=== PATIENT | female | born 1955 | race Caucasian/White ===

== ENCOUNTER 2017-02-12 10:28 | Emergency (ER) | payer MEDICAID ==
--- NOTE | 2017-02-12 10:42 | ER Document Report ---
ED Medical Screen (RME) - General Stated Complaint: ABDOMINAL AND BACK PAIN Time seen by provider: 10:39 Mode of Arrival: Wheelchair Information source: Patient Notes: 61-year-old female presents to ED for generalized abdominal pain with back pain states she had nausea just today none today no vomiting yesterday or today from her ribs down worse for the last week and a half. With the worst pain in the left lower ribs. She states the pain from her ribs radiates around to her back. She has had 3 fractures surgeries and 2 hip surgeries in his right hip. She states she also has a large ventral hernia. She has a history of heart problems blood pressure and cholesterol. I have greeted and performed a rapid initial assessment of this patient. A comprehensive ED assessment and evaluation of the patient, analysis of test results and completion of medical decision making process will be conducted by an additional ED providers. TRAVEL OUTSIDE OF THE [place] IN LAST 30 DAYS: No - Related Data Allergies/Adverse Reactions: amlodipine besylate [From Norvasc] Allergy (Verified 08/02/15 15:48) amoxicillin [Amoxicillin] Allergy (Verified 08/02/15 15:48) bupropion HCl [From Wellbutrin] Allergy (Verified 08/02/15 15:48) cefuroxime axetil [From Ceftin] Allergy (Verified 08/02/15 15:48) doxycycline [Doxycycline] Allergy (Verified 08/02/15 15:48) lisinopril [Lisinopril] Allergy (Verified 08/02/15 15:48) oxycodone HCl [From OxyContin] Allergy (Verified 08/02/15 15:48) povidone-iodine [From Betadine] Allergy (Verified 08/02/15 15:48) prochlorperazine maleate [From Compazine] Allergy (Verified 08/02/15 15:48) quetiapine fumarate [From Seroquel] Allergy (Verified 08/02/15 15:48) rosiglitazone maleate [From Avandia] Allergy (Verified 08/02/15 15:48) Past Medical History - Past Medical History Cardiac Medical History: Reports: Hx Heart Attack, Hx Hypercholesterolemia, Hx Hypertension Pulmonary Medical History: Reports: Hx Asthma, Hx Bronchitis, Hx COPD, Hx Pneumonia Denies: Hx Tuberculosis Endocrine Medical History: Reports: Hx Diabetes Mellitus Type 2 GI Medical History: Reports: Hx Gastroesophageal Reflux Disease Musculoskeltal Medical History: Reports Hx Arthritis, Reports Hx Fibromyalgia Psychiatric Medical History: Reports: Hx Bipolar Disorder, Hx Depression Past Surgical History: Reports: Hx Hysterectomy, Hx Orthopedic Surgery, Hx Thyroid Surgery. Denies: Hx Pacemaker - Immunizations Immunizations up to date: Yes Hx Diphtheria, Pertussis, Tetanus Vaccination: No Physical Exam - Vital signs Vitals: Temp Pulse Resp BP Pulse Ox 97.9 F 86 18 111/66 98 02/12/17 10:37 02/12/17 10:37 02/12/17 10:37 02/12/17 10:37 02/12/17 10:37 Course - Vital Signs Vital signs: Temp Pulse Resp BP Pulse Ox 97.9 F 86 18 111/66 98 02/12/17 10:37 02/12/17 10:37 02/12/17 10:37 02/12/17 10:37 02/12/17 10:37
[2017-02-12 11:19] LABS: APPEARANCE,URINE CLEAR; BILIRUBIN,URINE NEGATIVE (NEGATIVE); GLUCOSE, URINE NEGATIVE (NEGATIVE); KETONES,URINE NEGATIVE (NEGATIVE); LEUKOCYTE ESTERASE,URINE NEGATIVE (NEGATIVE); NITRITE,URINE NEGATIVE (NEGATIVE); PROTEIN,URINE NEGATIVE (NEGATIVE); URINE SPECIFIC GRAVITY 1.003; UROBILINOGEN,URINE NEGATIVE mg/dL (<2.0)
[2017-02-12 11:20] LABS: ABSOLUTE EOSINOPHILS # (AUTO) 0.3 10^3/uL (0.0-0.6); ABSOLUTE LYMPHOCYTES (AUTO) 1.7 10^3/uL (0.5-4.7); ABSOLUTE MONOCYTES (AUTO) 0.7 10^3/uL (0.1-1.4); ABSOLUTE NEUT (AUTO) 8.9 10^3/uL (1.7-8.2); BASOPHILS % (AUTO) 0.4 % (0-2); EOSINOPHILS % (AUTO) 2.4 % (0-6); HEMATOCRIT 34.7 % (36.0-47.0); HGB HCT DIFFERENCE -1.7; LYMPHOCYTES % (AUTO) 14.8 % (13-45); MEAN CORPUSCULAR HEMOGLOBIN 24.6 pg (27.0-33.4); MEAN CORPUSCULAR HGB CONC 31.8 g/dL (32.0-36.0); MEAN CORPUSCULAR VOLUME 77 fl (80-97); MONOCYTES % (AUTO) 5.6 % (3-13); RED CELL DISTRIBUTION WIDTH 18.1 % (11.5-14.0); SEGMENTED NEUTROPHILS % (AUTO) 76.8 % (42-78); WHITE BLOOD COUNT 11.6 10^3/uL (4.0-10.5)
[2017-02-12 11:35] LABS: ALANINE AMINOTRANSFERASE 40 U/L (9-52); ALBUMIN 4.6 g/dL (3.5-5.0); ALKALINE PHOSPHATASE 121 U/L (38-126); ANION GAP 13 (5-19); ASPARTATE AMINO TRANSFERASE 26 U/L (14-36); BILIRUBIN,TOTAL 0.3 mg/dL (0.2-1.3); BLOOD UREA NITROGEN 16 mg/dL (7-20); CALCIUM 10.2 mg/dL (8.4-10.2); CARBON DIOXIDE 29 mmol/L (22-30); CHLORIDE 102 mmol/L (98-107); CREATININE RESULT 0.91 mg/dL (0.52-1.25); GLUCOSE 129 mg/dL (75-110); LIPASE 128.6 U/L (23-300); POTASSIUM 5.1 mmol/L (3.6-5.0); TOTAL PROTEIN 7.7 g/dL (6.3-8.2)
--- NOTE | 2017-02-12 11:51 | ER Document Report ---
ED General - General Time seen by provider: 11:50 Mode of Arrival: Wheelchair Information source: Patient TRAVEL OUTSIDE OF THE [place] IN LAST 30 DAYS: No - HPI Onset: Other - see HPI note <TRENT HOWE - Last Filed: 02/12/17 16:45> <LANDON DANIELS - Last Filed: 02/27/17 05:51> - General Chief Complaint: Upper Abdominal Pain Stated Complaint: ABDOMINAL AND BACK PAIN Notes: Patient presents to the emergency department for rib pain and constipation. Patient has had this pain for the past 1.5 weeks. Patient states that after she eats she feels lots of pressure and pain to the area. Patient is on chronic pain management and states she takes miralax every night for her constipation due to her chronic pain medications. Patient also has a large ventral hernia. Patient states she has seen a surgeon regarding her hernia in [place], her home; patient states the surgeon told her she would need surgery and she should "lose some weight first." Patient did not want to have a major surgery so she stated that she backed out. Patient states she was not aware of the risks involved with this surgery. Patient states she has been having some spasms from her hernia. Patient has a history of back surgery x3, hip replacements x2, hypertension, and hypercholesterolemia. (TRENT HOWE) - Related Data Allergies/Adverse Reactions: amlodipine besylate [From Norvasc] Allergy (Verified 02/12/17 10:39) amoxicillin [Amoxicillin] Allergy (Verified 02/12/17 10:39) bupropion HCl [From Wellbutrin] Allergy (Verified 02/12/17 10:39) cefuroxime axetil [From Ceftin] Allergy (Verified 02/12/17 10:39) doxycycline [Doxycycline] Allergy (Verified 02/12/17 10:39) lisinopril [Lisinopril] Allergy (Verified 02/12/17 10:39) oxycodone HCl [From OxyContin] Allergy (Verified 02/12/17 10:39) povidone-iodine [From Betadine] Allergy (Verified 02/12/17 10:39) prochlorperazine maleate [From Compazine] Allergy (Verified 02/12/17 10:39) quetiapine fumarate [From Seroquel] Allergy (Verified 02/12/17 10:39) rosiglitazone maleate [From Avandia] Allergy (Verified 08/02/15 15:48) Past Medical History - General Information source: Patient - Social History Smoking Status: Former Smoker Chew tobacco use (# tins/day): No Frequency of alcohol use: None Drug Abuse: None Family History: None Patient has suicidal ideation: No Patient has homicidal ideation: No - Past Medical History Cardiac Medical History: Reports: Hx Heart Attack, Hx Hypercholesterolemia, Hx Hypertension Pulmonary Medical History: Reports: Hx Asthma, Hx Bronchitis, Hx COPD, Hx Pneumonia Endocrine Medical History: Reports: Hx Diabetes Mellitus Type 2 GI Medical History: Reports: Hx Gastroesophageal Reflux Disease, Other - ventral hernia Musculoskeltal Medical History: Reports Hx Arthritis, Reports Hx Fibromyalgia Psychiatric Medical History: Reports: Hx Bipolar Disorder, Hx Depression Past Surgical History: Reports: Hx Hysterectomy, Hx Orthopedic Surgery - back Sx x3; hip Sx x2, Hx Thyroid Surgery - Immunizations Immunizations up to date: Yes Hx Diphtheria, Pertussis, Tetanus Vaccination: No Hx Pneumococcal Vaccination: 11/30/08 <TRENT HOWE - Last Filed: 02/12/17 16:45> Review of Systems - Review of Systems Constitutional: No symptoms reported EENT: No symptoms reported Cardiovascular: No symptoms reported Respiratory: No symptoms reported Gastrointestinal: See HPI, Abdominal pain Genitourinary: No symptoms reported Female Genitourinary: No symptoms reported Musculoskeletal: No symptoms reported Skin: No symptoms reported Hematologic/Lymphatic: No symptoms reported Neurological/Psychological: No symptoms reported -: Yes All other systems reviewed and negative <TRENT HOWE - Last Filed: 02/12/17 16:45> Physical Exam - Vital signs Interpretation: Normal - General General appearance: Appears well, Alert In distress: Mild - HEENT Head: Normocephalic, Atraumatic Eyes: Normal Pupils: PERRL Mucous membranes: Moist - Respiratory Respiratory status: No respiratory distress Chest status: Nontender Breath sounds: Normal Chest palpation: Normal - Cardiovascular Rhythm: Regular Heart sounds: Normal auscultation Murmur: No - Abdominal Inspection: Other - Large ventral hernia Distension: No distension Bowel sounds: Normal Tenderness: Nontender Organomegaly: No organomegaly - Back Back: Normal, Nontender - Extremities General upper extremity: Normal inspection, Normal ROM, Normal strength General lower extremity: Normal inspection, Normal ROM, Normal strength - Neurological Neuro grossly intact: Yes Cognition: Normal Orientation: AAOx4 [place] Coma Scale Eye Opening: Spontaneous [place] Coma Scale Verbal: Oriented Jake Coma Scale Motor: Obeys Commands Jake Coma Scale Total: 15 Speech: Normal - Psychological Associated symptoms: Normal affect, Normal mood - Skin Skin Temperature: Warm Skin Moisture: Dry <TRENT HOWE - Last Filed: 02/12/17 16:45> Course - Laboratory Result Diagrams: 02/12/17 10:43 02/12/17 10:43 <TRENT HOWE - Last Filed: 02/12/17 16:45> - Laboratory Result Diagrams: 02/12/17 10:43 02/12/17 10:43 <LANDON DANIELS - Last Filed: 02/27/17 05:51> - Vital Signs Vital signs: Temp Pulse Resp BP Pulse Ox 97.8 F 85 20 136/78 H 96 02/12/17 14:43 02/12/17 14:43 02/12/17 14:43 02/12/17 14:43 02/12/17 14:43 - Laboratory Laboratory results interpreted by me: 02/12/17 02/12/17 10:43 10:43 WBC 11.6 H Hgb 11.0 L Hct 34.7 L MCV 77 L MCH 24.6 L MCHC 31.8 L RDW 18.1 H Absolute Neutrophils 8.9 H Potassium 5.1 H Glucose 129 H Discharge <TRENT HOWE - Last Filed: 02/12/17 16:45> <LANDON DANIELS - Last Filed: 02/27/17 05:51> - Discharge Clinical Impression: Abdominal pain, .large nonincarcerated ventral hernia Condition: Stable Disposition: HOME, SELF-CARE Additional Instructions: Abdominal Pain There are many causes of abdominal pain. Pain can mean a serious problem requiring surgery (such as appendicitis). It can also be an innocent problem that goes away on its own (such as a viral infection). Often, time must pass to determine the cause of pain. The physician does not feel that hospitalization is necessary, at present. Things may change within the next 24 hours. Call the doctor or come back for re- examination if any problems occur, such as: (1) Pain that becomes more severe, steady, or becomes concentrated in one specific area. Also, pain that is more severe with movement or coughing. (2) Vomiting that persists or becomes more frequent. (3) Blood in the vomitus, urine, or bowel movements. Blood in the stool may have a tarry or black appearance. (4) Shaking chills or fever greater than 100 degrees F. (5) The abdomen becomes more distended or swollen. (6) Bowel movements cease. (7) Failure to improve as expected. Hernia You have a hernia. A hernia forms at a weak spot in the abdominal wall. Bowel slips out of the abdominal cavity into the weak spot. Hernias tend to occur in the groin (especially in males), the fold of the thigh, the naval, or at a surgical scar. Surgical repair of the defect is usually necessary. The problem tends to get worse. It's important that you follow up as recommended. For now, you should avoid straining, heavy lifting, and vigorous exercise. Complications occur if the hernia becomes tightly stuck. You should come back immediately if the area becomes increasingly painful, swollen, or discolored, or if you develop abdominal pain and vomiting. Referrals: GORAN LUKE MD [ACTIVE STAFF] - Follow up tomorrow (This is concrete batcher for unassigned primary care. Please call his office first thing in the morning told them the ER would like you to be seen in one to 2 days in follow-up for abdominal pain return to the emergency department sooner for increasing worsening or new symptoms) Scribe Documentation - Scribe Written by Edith:: Trent Howe 02/12/17 12:15 acting as scribe for :: Major <TRENT HOWE - Last Filed: 02/12/17 16:45>
[2017-02-12 14:50] VITALS: BP 136/78
== END 2017-02-12 13:00 | disposition home or self-care (01) ==
LOC: ER 10:28
DX: K43.9 Ventral hernia without obstruction or gangrene (principal); R10.84 Generalized abdominal pain; R07.81 Pleurodynia; K59.00 Constipation, unspecified; E78.00 Pure hypercholesterolemia, unspecified; I10 Essential (primary) hypertension; J44.9 Chronic obstructive pulmonary disease, unspecified; E11.9 Type 2 diabetes mellitus without complications; Z96.643 Presence of artificial hip joint, bilateral; Z88.0 Allergy status to penicillin; Z90.710 Acquired absence of both cervix and uterus; I25.2 Old myocardial infarction
CPT/HCPCS: 36415; 74176; 80053; 81001; 83605; 83690; 85025; 99284

== ENCOUNTER → 2018-12-25 | Outpatient (CLI) | payer MEDICAID ==
[2018-12-25 12:17] LABS: APPEARANCE,URINE CLEAR; BILIRUBIN,URINE NEGATIVE (NEGATIVE); COLOR,URINE STRAW; GLUCOSE, URINE NEGATIVE (NEGATIVE); KETONES,URINE NEGATIVE (NEGATIVE); LEUKOCYTE ESTERASE,URINE NEGATIVE (NEGATIVE); NITRITE,URINE NEGATIVE (NEGATIVE); PROTEIN,URINE NEGATIVE (NEGATIVE); URINE SPECIFIC GRAVITY 1.004; UROBILINOGEN,URINE NEGATIVE mg/dL (<2.0)
[2018-12-25 12:22] LABS: ABSOLUTE EOSINOPHILS # (AUTO) 0.4 10^3/uL (0.0-0.6); ABSOLUTE MONOCYTES (AUTO) 0.5 10^3/uL (0.1-1.4); ABSOLUTE NEUT (AUTO) 6.7 10^3/uL (1.7-8.2); BASOPHILS % (AUTO) 0.4 % (0-2); EOSINOPHILS % (AUTO) 3.8 % (0-6); HEMATOCRIT 31.9 % (36.0-47.0); HEMOGLOBIN 10.3 g/dL (12.0-15.5); LYMPHOCYTES % (AUTO) 20.8 % (13-45); MEAN CORPUSCULAR HEMOGLOBIN 25.6 pg (27.0-33.4); MEAN CORPUSCULAR HGB CONC 32.4 g/dL (32.0-36.0); MEAN CORPUSCULAR VOLUME 79 fl (80-97); MONOCYTES % (AUTO) 4.9 % (3-13); PLATELET COUNT 320 10^3/uL (150-450); RED BLOOD COUNT 4.03 10^6/uL (3.72-5.28); RED CELL DISTRIBUTION WIDTH 18.1 % (11.5-14.0); SEGMENTED NEUTROPHILS % (AUTO) 70.1 % (42-78); TOTAL CELLS COUNTED % (AUTO) 100 %; WHITE BLOOD COUNT 9.6 10^3/uL (4.0-10.5)
[2018-12-25 12:35] LABS: ALANINE AMINOTRANSFERASE 36 U/L (9-52); ALBUMIN 4.1 g/dL (3.5-5.0); ALKALINE PHOSPHATASE 109 U/L (38-126); ANION GAP 8 (5-19); ASPARTATE AMINO TRANSFERASE 37 U/L (14-36); BILIRUBIN,DIRECT 0.2 mg/dL (0.0-0.4); BILIRUBIN,TOTAL 0.2 mg/dL (0.2-1.3); BLOOD UREA NITROGEN 13 mg/dL (7-20); CALCIUM 9.1 mg/dL (8.4-10.2); CARBON DIOXIDE 28 mmol/L (22-30); CHLORIDE 105 mmol/L (98-107); GLUCOSE 122 mg/dL (75-110); POTASSIUM 4.1 mmol/L (3.6-5.0); TOTAL PROTEIN 6.7 g/dL (6.3-8.2)
[2018-12-27 03:36] LABS: CREATININE URINE 28.4 mg/dL (Not Estab.)
[2018-12-27 07:20] LABS: MICROALBUMIN URINE <3.0 ug/mL (Not Estab.)
== END ==
LOC: OD 10:41
PROVIDERS: ATTEND Internal Medicine
DX: D64.9 Anemia, unspecified (principal); R10.9 Unspecified abdominal pain; E11.8 Type 2 diabetes mellitus with unspecified complications; E78.5 Hyperlipidemia, unspecified; E55.9 Vitamin D deficiency, unspecified
CPT/HCPCS: 36415; 80053; 81001; 82043; 82306; 82570; 83036; 84443; 85025

== ENCOUNTER 2019-01-05 12:46 | Emergency (ER) | payer MEDICAID ==
--- NOTE | 2019-01-05 14:29 | ER Document Report ---
ED General - General Chief Complaint: Knee Pain Stated Complaint: KNEE PAIN Time Seen by Provider: 01/05/19 14:12 Primary Care Provider: RICKIE MCDANIEL MD [Primary Care Provider] - Follow up in 3-5 days Mode of Arrival: Medic Information source: Patient, Emergency Med Personnel, [facility] Records Notes: 63-year-old female with arthritis, fibromyalgia, type 2 diabetes, hypertension, hyperlipidemia, previous history of back and hip surgery presents via EMS from home with complaint of bilateral knee pain and right shoulder pain. Patient states that she fell asleep in bed and fell out of bed landing onto the carpeted floor onto both knees. Patient denies head injury, loss of consciousness. Patient denies any preceding chest pain, shortness of breath. TRAVEL OUTSIDE OF THE [place] IN LAST 30 DAYS: No - HPI Onset: Just prior to arrival Onset/Duration: Sudden Quality of pain: Achy, Throbbing Severity: Mild Pain Level: 2 Associated symptoms: denies: Chest pain, Chills, Fever, Nausea, Vomiting, Shortness of breath, Weakness Exacerbated by: Movement Relieved by: Denies Similar symptoms previously: Yes Recently seen / treated by doctor: Yes - Related Data Allergies/Adverse Reactions: amlodipine besylate [From Norvasc] Allergy (Verified 01/05/19 12:49) amoxicillin [Amoxicillin] Allergy (Verified 01/05/19 12:49) bupropion HCl [From Wellbutrin] Allergy (Verified 01/05/19 12:49) cefuroxime axetil [From Ceftin] Allergy (Verified 01/05/19 12:49) doxycycline [Doxycycline] Allergy (Verified 01/05/19 12:49) lisinopril [Lisinopril] Allergy (Verified 01/05/19 12:49) oxycodone HCl [From OxyContin] Allergy (Verified 01/05/19 12:49) povidone-iodine [From Betadine] Allergy (Verified 01/05/19 12:49) prochlorperazine maleate [From Compazine] Allergy (Verified 01/05/19 12:49) quetiapine fumarate [From Seroquel] Allergy (Verified 01/05/19 12:49) rosiglitazone maleate [From Avandia] Allergy (Verified 01/05/19 12:49) Past Medical History - General Information source: Patient, Emergency Med Personnel, [facility] Records - Social History Smoking Status: Former Smoker Frequency of alcohol use: None Drug Abuse: None Lives with: Family Family History: None Patient has suicidal ideation: No Patient has homicidal ideation: No - Past Medical History Cardiac Medical History: Reports: Hx Heart Attack, Hx Hypercholesterolemia, Hx Hypertension Pulmonary Medical History: Reports: Hx Asthma, Hx Bronchitis, Hx COPD, Hx Pneumonia Denies: Hx Tuberculosis Endocrine Medical History: Reports: Hx Diabetes Mellitus Type 2 Renal/ Medical History: Denies: Hx Peritoneal Dialysis GI Medical History: Reports: Hx Gastroesophageal Reflux Disease Musculoskeletal Medical History: Reports Hx Arthritis, Reports Hx Fibromyalgia Psychiatric Medical History: Reports: Hx Bipolar Disorder, Hx Depression Past Surgical History: Reports: Hx Hysterectomy, Hx Orthopedic Surgery - back Sx x3; hip Sx x2, Hx Thyroid Surgery. Denies: Hx Pacemaker - Immunizations Immunizations up to date: Yes Hx Diphtheria, Pertussis, Tetanus Vaccination: No Hx Pneumococcal Vaccination: 11/30/08 Review of Systems - Review of Systems Notes: REVIEW OF SYSTEMS: CONSTITUTIONAL : Denies fever, chills, or sweats. Denies recent illness. Denies weight loss, recent hospitalizations. EENT: Denies visual changes, eye pain. Denies sore throat, oral lesions, difficulty swallowing. CARDIOVASCULAR: Denies chest pain. Denies palpitations. Denies lower extremity edema. RESPIRATORY: Denies cough. Denies shortness of breath, wheezing. GASTROINTESTINAL: Denies abdominal pain or distention. Denies nausea, vomiting, or diarrhea. Denies blood in vomitus, stools, or per rectum. Denies black, tarry stools. Denies constipation. GENITOURINARY: Denies difficulty urinating, painful urination, frequency, blood in urine, or vaginal discharge. MUSCULOSKELETAL: + Back painchronic, bilateral knee pain SKIN: Denies rash, lesions or sores. HEMATOLOGIC : Denies easy bruising or bleeding. LYMPHATIC: Denies swollen glands. NEUROLOGICAL: Denies confusion or altered mental status. Denies loss of consciousness. Denies dizziness or lightheadedness. Denies headache. Denies weakness or paralysis. Denies problems slurred speech. Denies sensory loss, numbness, or tingling. Denies seizures. PSYCHIATRIC: Denies anxiety or stress. Denies depression, suicidal ideation, or homicidal ideation. Denies visual or auditory hallucinations. Physical Exam - Vital signs Vitals: Temp Pulse Resp BP Pulse Ox 97.7 F 78 20 120/71 97 01/05/19 13:16 01/05/19 13:16 01/05/19 13:16 01/05/19 13:16 01/05/19 13:16 - Notes Notes: PHYSICAL EXAMINATION: GENERAL: In wheelchair, somnolent but arousable HEAD: Atraumatic, normocephalic. EYES: Pinpoint pupils equal round and reactive to light, extraocular movements intact, conjunctiva are normal. ENT: Nares patent, oropharynx clear without exudates. Moist mucous membranes. NECK: Normal range of motion, supple without lymphadenopathy LUNGS: Breath sounds clear to auscultation bilaterally and equal. No wheezes rales or rhonchi. HEART: Regular rate and rhythm without murmurs ABDOMEN: Soft, nontender, nondistended abdomen. No guarding, no rebound. No masses appreciated. Female : deferred Musculoskeletal: Normal range of motion, no pitting or edema. No cyanosis. Knees-no obvious deformity, extensor mechanism intact bilaterally. Pain with palpation to the medial of the knees bilaterally. No associated ecchymosis. DP, PT pulse intact. 5/5 dorsi and plantar flexion. Patient able to wiggle her toes. Right shoulder full range of motion, no obvious deformity, radial pulse intact. No neuro deficits. NEUROLOGICAL: Cranial nerves grossly intact. Normal speech, normal gait. Normal sensory, motor exams PSYCH: Normal mood, normal affect. SKIN: Warm, Dry, normal turgor, no rashes or lesions noted. Course - Re-evaluation Re-evalutation: Knee X-Ray 01/05/19 14:22 IMPRESSION: No acute fracture Shoulder X-Ray 01/05/19 14:23 IMPRESSION: NEGATIVE STUDY OF THE RIGHT SHOULDER. NO RADIOGRAPHIC EVIDENCE OF ACUTE INJURY. 01/05/19 15:32 63-year-old female presents via EMS with complaint of bilateral knee pain and right shoulder pain after falling out of bed while sleeping. Patient denies head injury, loss of consciousness. She does have an extensive history of arthritis, orthopedic procedures and fibromyalgia. No obvious evidence of trauma on physical exam. Patient has full range of motion of all 4 extremities. No evidence of head injury. X-ray of the knee and shoulder were obtained and showed no acute process or injury. Patient declining CAT scan of the head. Results discussed with patient and patient was discharged home in stable condition. Patient was evaluated and treated as appropriate for the patient's presenting symptoms and complaint, with consideration of any critical or life threatening conditions that may be associated with their obtained history and exam as noted above. All results were discussed with patient. Patient provided the opportunity to ask questions, and express concerns. Patient was educated on treatments based on their presumed diagnosis as noted above. At this time we will discharge the patient with return precautions and follow-up recommendations. Verbal discharge instructions given a the bedside. Medication warnings reviewed. Patient is in agreement with this plan and has verbalized understanding of return precautions. After careful consideration I feel that that patient can be safely discharged from the emergency department, they were advised to followup with a primary care physician in 2-3 days. Dictation on this chart was performed using voice recognition software and may result in unintended grammatical, spelling, syntax or errors. - Vital Signs Vital signs: Temp Pulse Resp BP Pulse Ox 97.7 F 78 20 120/71 97 01/05/19 13:16 01/05/19 13:16 01/05/19 13:16 01/05/19 13:16 01/05/19 13:16 - Diagnostic Test Radiology reviewed: Image reviewed, Reports reviewed Discharge - Discharge Clinical Impression: Right shoulder strain Qualifiers: Encounter type: initial encounter Qualified Code(s): S46.911A - Strain of unspecified muscle, fascia and tendon at shoulder and upper arm level, right arm, initial encounter Knee contusion Qualifiers: Encounter type: initial encounter Laterality: unspecified laterality Qualified Code(s): S80.00XA - Contusion of unspecified knee, initial encounter Fall Qualifiers: Encounter type: initial encounter Qualified Code(s): W19.XXXA - Unspecified fall, initial encounter Condition: Good Disposition: HOME, SELF-CARE Instructions: Ice & Elevation ([facility]), Exercise Program for the Shoulder ([facility]), Shoulder Injury ([facility]), Sprained Knee ([facility]) Referrals: RICKIE MCDANIEL MD [Primary Care Provider] - Follow up in 3-5 days
--- NOTE | 2019-01-05 15:01 | RADIOLOGY REPORT (SQ) ---
EXAM DESCRIPTION: KNEE BILATERAL 1-2 VIEWS COMPLETED DATE/TIME: 01/05/2019 2:44 pm REASON FOR STUDY: fall knee pain COMPARISON: None. NUMBER OF VIEWS: Two views right knee Two views left knee TECHNIQUE: AP and lateral radiographic images acquired of the right and left knee. LIMITATIONS: None. FINDINGS: MINERALIZATION: Osteoporotic BONES: No acute fracture or dislocation. No worrisome bone lesions. No significant osteophytes. JOINT: No effusion. No chondrocalcinosis. Mild bilateral medial compartment joint space narrowing OTHER: No other significant finding. IMPRESSION: No acute fracture TECHNICAL DOCUMENTATION: JOB ID: [id number] [employer]- All Rights Reserved Reading location - IP/workstation name: [email or web address]
--- NOTE | 2019-01-05 15:10 | RADIOLOGY REPORT (SQ) ---
EXAM DESCRIPTION: SHOULDER RIGHT 2 OR MORE VIEWS COMPLETED DATE/TIME: 01/05/2019 2:44 pm REASON FOR STUDY: fall COMPARISON: None. NUMBER OF VIEWS: Three views. TECHNIQUE: Internal rotation, external rotation, and Y view images acquired of the right shoulder. LIMITATIONS: None. FINDINGS: MINERALIZATION: Osteopenic BONES: No acute fracture or dislocation. No worrisome bone lesions. JOINTS: No glenohumeral malalignment. No AC joint widening. VISUALIZED LUNGS AND RIBS: Old healed right lateral 7th rib fracture SOFT TISSUES: No radiopaque foreign body. OTHER: No other significant finding. IMPRESSION: NEGATIVE STUDY OF THE RIGHT SHOULDER. NO RADIOGRAPHIC EVIDENCE OF ACUTE INJURY. TECHNICAL DOCUMENTATION: JOB ID: [id number] [employer]- All Rights Reserved Reading location - IP/workstation name: [email or web address]
[2019-01-05 15:37] VITALS: BP 133/70
--- NOTE | 2019-01-05 16:26 | RADIOLOGY REPORT (SQ) ---
EXAM DESCRIPTION: PELVIS AP COMPLETED DATE/TIME: 01/05/2019 4:16 pm REASON FOR STUDY: Fall pain COMPARISON: None. NUMBER OF VIEWS: One view TECHNIQUE: AP Pelvis LIMITATIONS: None. FINDINGS: MINERALIZATION: Normal. HIPS: Bipolar prosthesis of the right hip. No acute findings in the left hip. PELVIS AND SACRUM: No acute fracture or dislocation. No worrisome bone lesions. PUBIS AND ISCHIUM: No acute fracture. LOWER LUMBAR SPINE: Extensive surgical changes. SOFT TISSUES: No findings. OTHER: No other significant finding. IMPRESSION: Chronic findings. No acute fracture identified. COMMENT: Pelvic fractures are often occult on plain radiographs. If strong clinical suspicion for f racture, recommend CT or MR. TECHNICAL DOCUMENTATION: JOB ID: [id number] [employer]- All Rights Reserved Reading location - IP/workstation name: [email or web address]
== END 2019-01-05 17:00 | disposition home or self-care (01) ==
LOC: ER 12:46
DX: S46.911A Strain of unspecified muscle, fascia and tendon at shoulder and upper arm level, right arm, initial encounter (principal); S80.00XA Contusion of unspecified knee, initial encounter; M25.561 Pain in right knee; M25.562 Pain in left knee; Z98.890 Other specified postprocedural states; E11.9 Type 2 diabetes mellitus without complications; I10 Essential (primary) hypertension; W06.XXXA Fall from bed, initial encounter; J44.9 Chronic obstructive pulmonary disease, unspecified
CPT/HCPCS: 72170; 99283

== ENCOUNTER 2019-02-17 08:44 | Emergency (ER) | payer MEDICAID ==
--- NOTE | 2019-02-17 09:37 | ER Document Report ---
ED Extremity Problem, Lower - General Chief Complaint: Foot Injury Stated Complaint: FOOT INJURY Time Seen by Provider: 02/17/19 09:05 Primary Care Provider: RICKIE MCDANIEL MD [Primary Care Provider] - Follow up as needed Mode of Arrival: Wheelchair Information source: Patient Notes: 63-year-old female presents to ED for complaint of right foot pain since yeste rday. She states she tripped over her puppy and rolled her ankle and fell. She states she could come to the emergency room yesterday because she had to go to pain management to get her refills on her pain medicine. She states that her foot is become more painful and swollen she came to the emergency room to get it x-rayed. She took her oxygen coated 10 mg this morning then she has not had any relief from the pain. Patient is alert oriented respirations regular and unlabored speaking in full sentences. She does have some mildly swollen ecchymotic ankle. TRAVEL OUTSIDE OF THE [place] IN LAST 30 DAYS: No - HPI Patient complains to provider of: Injury, Pain, Swelling Location: Ankle, Foot Occurred: Yesterday Where: Home, Indoors Onset/Duration: Gradual Quality of pain: Achy, Throbbing Severity: Moderate Pain Level: 4 Context: Other - Rolled her ankle yesterday Recent injury: Possibly Associated symptoms: Painful ambulation Exacerbated by: Hanging down, Movement, Walking Relieved by: Elevation, Ice, Rest - Related Data Allergies/Adverse Reactions: amlodipine besylate [From Norvasc] Allergy (Verified 01/05/19 12:49) amoxicillin [Amoxicillin] Allergy (Verified 01/05/19 12:49) bupropion HCl [From Wellbutrin] Allergy (Verified 01/05/19 12:49) cefuroxime axetil [From Ceftin] Allergy (Verified 01/05/19 12:49) doxycycline [Doxycycline] Allergy (Verified 01/05/19 12:49) lisinopril [Lisinopril] Allergy (Verified 01/05/19 12:49) oxycodone HCl [From OxyContin] Allergy (Verified 01/05/19 12:49) povidone-iodine [From Betadine] Allergy (Verified 01/05/19 12:49) prochlorperazine maleate [From Compazine] Allergy (Verified 01/05/19 12:49) quetiapine fumarate [From Seroquel] Allergy (Verified 01/05/19 12:49) rosiglitazone maleate [From Avandia] Allergy (Verified 01/05/19 12:49) Past Medical History - General Information source: Patient - Social History Smoking Status: Current Every Day Smoker Cigarette use (# per day): Yes - 3 cigarettes a day Chew tobacco use (# tins/day): No Smoking Education Provided: Yes - 4 minutes Frequency of alcohol use: None Drug Abuse: None Occupation: Disabled Lives with: Family Family History: None Patient has suicidal ideation: No Patient has homicidal ideation: No - Past Medical History Cardiac Medical History: Reports: Hx Hypercholesterolemia, Hx Hypertension Pulmonary Medical History: Reports: Hx Asthma, Hx Bronchitis, Hx COPD, Hx Pneumonia EENT Medical History: Reports: None Neurological Medical History: Reports: None Endocrine Medical History: Reports: Hx Diabetes Mellitus Type 2 Renal/ Medical History: Reports: None Malignancy Medical History: Reports: None GI Medical History: Reports: Hx Gastroesophageal Reflux Disease Musculoskeletal Medical History: Reports Hx Arthritis, Reports Hx Fibromyalgia, Reports Hx Musculoskeletal Deformity, Reports Hx Musculoskeletal Trauma Skin Medical History: Reports None Psychiatric Medical History: Reports: Hx Bipolar Disorder, Hx Depression Traumatic Medical History: Reports: None Infectious Medical History: Reports: None Past Surgical History: Reports: Hx Hysterectomy, Hx Orthopedic Surgery - back Sx x4; hip Sx x2, Hx Thyroid Surgery - Immunizations Immunizations up to date: Yes Hx Diphtheria, Pertussis, Tetanus Vaccination: No Hx Pneumococcal Vaccination: 11/30/08 Review of Systems - Review of Systems Constitutional: No symptoms reported EENT: No symptoms reported Cardiovascular: No symptoms reported Respiratory: No symptoms reported Gastrointestinal: No symptoms reported Genitourinary: No symptoms reported Female Genitourinary: No symptoms reported Musculoskeletal: Ankle swelling Skin: No symptoms reported Hematologic/Lymphatic: No symptoms reported Neurological/Psychological: No symptoms reported -: Yes All other systems reviewed and negative Physical Exam - Vital signs Vitals: Temp Pulse Resp BP Pulse Ox 98.1 F 93 18 149/81 H 97 02/17/19 08:51 02/17/19 08:51 02/17/19 08:51 02/17/19 08:51 02/17/19 08:51 Interpretation: Normal - General General appearance: Appears well, Alert - HEENT Head: Normocephalic, Atraumatic Eyes: Normal Pupils: PERRL - Respiratory Respiratory status: No respiratory distress Chest status: Nontender Breath sounds: Normal Chest palpation: Normal - Cardiovascular Rhythm: Regular Heart sounds: Normal auscultation Murmur: No - Abdominal Inspection: Normal Distension: No distension Bowel sounds: Normal Tenderness: Nontender Organomegaly: No organomegaly - Back Back: Normal, Nontender - Extremities General upper extremity: Normal inspection, Nontender, Normal color, Normal ROM, Normal temperature General lower extremity: Normal ROM, Normal temperature, Normal weight bearing. No: Colton's sign Foot: Tender, Ecchymosis, Edema, Metatarsal compress. pain, No evidence of FB. No: Abrasion, Deformity, Instability, Laceration, Nail injury, Navicular tenderness, Puncture wound, Tender 5th metatarsal - Neurological Neuro grossly intact: Yes Cognition: Normal Orientation: AAOx4 Jake Coma Scale Eye Opening: Spontaneous Jake Coma Scale Verbal: Oriented Jake Coma Scale Motor: Obeys Commands Jake Coma Scale Total: 15 Speech: Normal Motor strength normal: LUE, RUE, LLE, RLE Sensory: Normal - Psychological Associated symptoms: Normal affect, Normal mood - Skin Skin Temperature: Warm Skin Moisture: Dry Skin Color: Normal Course - Re-evaluation Re-evalutation: 02/17/19 10:34 The patient is nontoxic appearing with stable vitals. They are afebrile. Ankle exam shows no deformities with no obvious ligament instability. There is a normal pulse and sensation distally. There is no redness or signs of infection. X-rays show no acute fracture per the radiologist. Patient will be placed in an Sudheer wrap for comfort. Patient has a walker and does not need crutches. Patient will be instructed to follow-up with not better in 1 week, sooner for increasing pain, fever, redness, numbness, tingling, weakness, any further concerns. Patient will be instructed to rest, ice, elevate their ankle. - Vital Signs Vital signs: Temp Pulse Resp BP Pulse Ox 98.1 F 93 18 149/81 H 97 02/17/19 08:51 02/17/19 08:51 02/17/19 08:51 02/17/19 08:51 02/17/19 08:51 - Diagnostic Test Radiology reviewed: Image reviewed, Reports reviewed Procedures - Immobilization Right Ankle Time completed: 10:32 Pre-Proc Neuro Vasc Exam: Normal Immobilizer type: Sudheer wrap Performed by: AIDAN Post-Proc Neuro Vasc Exam: Normal Alignment checked and good: Yes Discharge - Discharge Clinical Impression: Right ankle sprain Qualifiers: Encounter type: initial encounter Involved ligament of ankle: unspecified ligament Qualified Code(s): S93.401A - Sprain of unspecified ligament of right ankle, initial encounter Contusion of foot including toes Qualifiers: Encounter type: initial encounter Laterality: right Qualified Code(s): S90.31XA - Contusion of right foot, initial encounter; S90.121A - Contusion of right lesser toe(s) without damage to nail, initial encounter Condition: Stable Disposition: HOME, SELF-CARE Additional Instructions: SPRAINED ANKLE: Your sprained ankle results from stretching or tearing of the ligaments which support the ankle. This usually results from twisting the foot inward and under. The ligaments will require time and protection in order to heal properly. Many ankle sprains are quite disabling, and should be taken seriously. The usual treatment for an ankle sprain is cold packs; protection with tape, splints, or wraps; elevation; and staying off the ankle for at least a day. As the ankle improves, you can walk IF it's not painful to bear weight. Sports are best postponed until healing is complete. More serious sprains us ually require strengthening exercises after early healing. Your physician has assessed the seriousness of the ligament injury to your ankle. However, the treatment may change, depending on how your ankle progresses. If further exams were recommended, it is important that you follow through. Call the doctor if your foot becomes numb, painful, or severely swollen. SUDHEER WRAP: A compression dressing (sudheer wrap) has been placed. This helps hold the area still. It limits swelling and internal bleeding. The wrap should be comfortably snug -- not tight. You should feel a sense of pressure, but not severe pain under the wrap. Unless the physician tells you otherwise, you can adjust the wrap for comfort. If the wrap causes symptoms suggesting it's too tight -- uncomfortable pressure, swelling or discoloration beyond the wrap, numbness, or severe pain -- you must loosen the wrap. If these symptoms don't resolve promptly, return for re-evaluation. ICE & ELEVATION: Apply ice packs frequently against the painful area. Many different schedules are recommended, such as "20 minutes on, 20 minutes off" or "one hour ice, two hours rest." If you need to work, you may need to go longer between ice treatments. You should plan to have the area ice packed AT LEAST one-fourth of the time. The ice should be applied over the wrap, tape, or splint, or over a layer o f cloth -- not directly against the skin. Some ice bags have a built-in cloth and can be put directly on the skin. Your injured part should be elevated as much as possible over the next 48 hours. Try to keep the injury above the level of the heart. Avoid use of the injured area. Elevation and rest will decrease the swelling. USE OF [id number]-JVU-[id number] IBUPROFEN: Ibuprofen (Advil, Nuprin, Medipren, Motrin IB) is a medication for fever and pain control. In addition, it has anti- inflammatory effects which may be beneficial, especially in the treatment of injuries. It's best to take ibuprofen with food. Persons with ulcer disease or allergy to aspirin should notify their physician of this before taking ibuprofen. Ibuprofen can be given every four to six hours, for a total of four doses daily. Age Pain or fever dose Antiinflammatory dose 6-8 yr 200 mg (1 tab) 200 mg (1 tab) 9-11 yr 200 mg (1 tab) 200-400 mg (1-2 tab) 11-14 yr 200-400 mg (1-2 tab) 400 mg (2 tab) 15-adult 400 mg (2 tab) 600 mg (3 tab) FOLLOW-UP CARE: If you have been referred to a physician for follow-up care, call the physicians office for an appointment as you were instructed or within the next two days. If you experience worsening or a significant change in your symptoms, notify the physician immediately or return to the Emergency Department at any time for re-evaluation. Forms: Elevated Blood Pressure Referrals: RICKIE MCDANIEL MD [Primary Care Provider] - Follow up as needed [facility] [Provider Group] - Follow up as needed
--- NOTE | 2019-02-17 10:17 | RADIOLOGY REPORT (SQ) ---
EXAM DESCRIPTION: ANKLE RIGHT COMPLETE; FOOT RIGHT COMPLETE COMPLETED DATE/TIME: 02/17/2019 9:58 am REASON FOR STUDY: pain and injury COMPARISON: None. NUMBER OF VIEWS: Three views. TECHNIQUE: AP, lateral, and oblique radiographic images acquired of the right foot and ankle. LIMITATIONS: None. FINDINGS: MINERALIZATION: Osteopenia. BONES: No acute fracture or dislocation. No worrisome bone lesions. JOINTS: No effusions. SOFT TISSUES: Diffuse soft tissue swelling about the right foot and right ankle. OTHER: No other significant finding. IMPRESSION: Osteopenia. No fracture of the right foot or right ankle. Diffuse soft tissue swelling . TECHNICAL DOCUMENTATION: JOB ID: [id number] [employer]- All Rights Reserved Reading location - IP/workstation name: [email or web address]
--- NOTE | 2019-02-17 10:17 | RADIOLOGY REPORT (SQ) ---
EXAM DESCRIPTION: ANKLE RIGHT COMPLETE; FOOT RIGHT COMPLETE COMPLETED DATE/TIME: 02/17/2019 9:58 am REASON FOR STUDY: pain and injury COMPARISON: None. NUMBER OF VIEWS: Three views. TECHNIQUE: AP, lateral, and oblique radiographic images acquired of the right foot and ankle. LIMITATIONS: None. FINDINGS: MINERALIZATION: Osteopenia. BONES: No acute fracture or dislocation. No worrisome bone lesions. JOINTS: No effusions. SOFT TISSUES: Diffuse soft tissue swelling about the right foot and right ankle. OTHER: No other significant finding. IMPRESSION: Osteopenia. No fracture of the right foot or right ankle. Diffuse soft tissue swelling . TECHNICAL DOCUMENTATION: JOB ID: [id number] [employer]- All Rights Reserved Reading location - IP/workstation name: [email or web address]
[2019-02-17 10:41] VITALS: BP 137/77
== END 2019-02-17 10:25 | disposition home or self-care (01) ==
LOC: ER 08:44
DX: S90.31XA Contusion of right foot, initial encounter (principal); S93.401A Sprain of unspecified ligament of right ankle, initial encounter; S90.01XA Contusion of right ankle, initial encounter; M79.89 Other specified soft tissue disorders; X50.1XXA Overexertion from prolonged static or awkward postures, initial encounter; Z79.899 Other long term (current) drug therapy; F17.210 Nicotine dependence, cigarettes, uncomplicated; I10 Essential (primary) hypertension; J44.9 Chronic obstructive pulmonary disease, unspecified
CPT/HCPCS: 99283; 99406

== ENCOUNTER 2019-03-01 01:59 | Emergency (ER) | payer MEDICAID ==
[2019-03-01] MEDS ORDERED: DIPH/PERTUSS(ACELL)/TETANUS VAC/PF 0.5 ML SYR (>=10YO) IM ONE (03:30)
--- NOTE | 2019-03-01 03:31 | ER Document Report ---
ED General <LOU GUADALUPE - Last Filed: 03/01/19 05:59> - General TRAVEL OUTSIDE OF THE [place] IN LAST 30 DAYS: No <RICKI LOWRY - Last Filed: 03/01/19 06:38> - General Chief Complaint: Fall Stated Complaint: FALL Time Seen by Provider: 03/01/19 02:48 Primary Care Provider: RICKIE MCDANIEL MD [Primary Care Provider] - Follow up as needed Notes: Patient is a 63-year-old female with past medical history of diabetes, bipolar disorder, hypertension, who presents after falling out of bed. Patient states that she gas her right leg on a wooden box in the ground and also hit her left hip. She notes that she sustained a large gash over her right lower extremity. She also believes she hit her jaw. States that since that time she has had a throbbing, aching, severe pain to the affected areas. Touching the areas worsens the pain. Nothing improves the pain. Denies history of similar injuries in the past. Uncertain of the last date of her tetanus shot. Does arrive by EMS. Denies hitting her head or neck. Denies any use of anticoagulation. Denies any focal weakness, numbness or confusion. (RICKI LOWRY) - Related Data Allergies/Adverse Reactions: amlodipine besylate [From Norvasc] Allergy (Verified 01/05/19 12:49) amoxicillin [Amoxicillin] Allergy (Verified 01/05/19 12:49) bupropion HCl [From Wellbutrin] Allergy (Verified 01/05/19 12:49) cefuroxime axetil [From Ceftin] Allergy (Verified 01/05/19 12:49) doxycycline [Doxycycline] Allergy (Verified 01/05/19 12:49) lisinopril [Lisinopril] Allergy (Verified 01/05/19 12:49) oxycodone HCl [From OxyContin] Allergy (Verified 01/05/19 12:49) povidone-iodine [From Betadine] Allergy (Verified 01/05/19 12:49) prochlorperazine maleate [From Compazine] Allergy (Verified 01/05/19 12:49) quetiapine fumarate [From Seroquel] Allergy (Verified 01/05/19 12:49) rosiglitazone maleate [From Avandia] Allergy (Verified 01/05/19 12:49) Past Medical History - General Information source: Patient - Social History Smoking Status: Never Smoker Chew tobacco use (# tins/day): No Frequency of alcohol use: None Drug Abuse: None Lives with: Family Family History: Reviewed & Not Pertinent Patient has suicidal ideation: No Patient has homicidal ideation: No - Past Medical History Cardiac Medical History: Reports: Hx Heart Attack, Hx Hypercholesterolemia, Hx Hypertension Pulmonary Medical History: Reports: Hx Asthma, Hx Bronchitis, Hx COPD, Hx Pneumonia Denies: Hx Tuberculosis Endocrine Medical History: Reports: Hx Diabetes Mellitus Type 2 Renal/ Medical History: Denies: Hx Peritoneal Dialysis GI Medical History: Reports: Hx Gastroesophageal Reflux Disease Musculoskeletal Medical History: Reports Hx Arthritis, Reports Hx Fibromyalgia, Reports Hx Musculoskeletal Deformity, Reports Hx Musculoskeletal Trauma Psychiatric Medical History: Reports: Hx Bipolar Disorder, Hx Depression Past Surgical History: Reports: Hx Hysterectomy, Hx Orthopedic Surgery - back Sx x4; hip Sx x2, Hx Thyroid Surgery. Denies: Hx Pacemaker - Immunizations Immunizations up to date: Yes Hx Diphtheria, Pertussis, Tetanus Vaccination: No Hx Pneumococcal Vaccination: 11/30/08 <RICKI LOWRY - Last Filed: 03/01/19 06:38> Review of Systems <RICKI LOWRY - Last Filed: 03/01/19 06:38> - Review of Systems Notes: Constitutional: Negative for fever. Eyes: Negative for visual changes. ENT: Positive for jaw injury Cardiovascular: Negative for chest injury. Respiratory: Negative for shortness of breath. Gastrointestinal: Negative for abdominal injury. Genitourinary: Negative for genital injury Musculoskeletal: Positive for left hip injury Skin: Positive for laceration/abrasions. Neurological: Negative for head injury. (RICKI LOWRY) Physical Exam - Vital signs Interpretation: Hypertensive <RICKI LOWRY - Last Filed: 03/01/19 06:38> - Vital signs Vitals: Temp Pulse Resp BP Pulse Ox 97.4 F 73 14 145/87 H 98 03/01/19 02:16 03/01/19 02:16 03/01/19 02:16 03/01/19 02:16 03/01/19 02:16 Notes: PHYSICAL EXAMINATION: GENERAL: Appears older than stated age, in moderate discomfort but no acute distress HEAD: Atraumatic, normocephalic. EYES: Pupils equal round and reactive to light, extraocular movements intact, sclera anicteric, conjunctiva are normal. ENT: nares patent, no oral pharyngeal trauma. No hemotympanum, no Celaya's sign, no raccoon eyes. NECK: No midline cervical spine tenderness. Patient able to move their head to 45 bilaterally without any discomfort. LUNGS: Breath sounds clear to auscultation bilaterally and equal. No wheezes rales or rhonchi. HEART: Regular rate and rhythm without murmurs. 2+ DP pulses bilaterally CHEST WALL: No ecchymosis over the chest wall. ABDOMEN: Soft, nontender, normoactive bowel sounds. No guarding, no rebound. No abdominal bruising EXTREMITIES: Normal range of motion, no pitting or edema. No long bone deformities. BACK: No midline spinal tenderness, step-offs, or deformities. NEUROLOGICAL: Moves all extremities spontaneously and on command PSYCH: Anxious, histrionic SKIN: Warm, Dry, normal turgor, 30 cm irregular flap type laceration over the right lower extremity at the level of the mid tibia and over the calf (RICKI LOWRY) Course - Diagnostic Test Radiology reviewed: Image reviewed, Reports reviewed <RICKI LOWRY - Last Filed: 03/01/19 06:38> - Re-evaluation Re-evalutation: 03/01/19 03:30 Patient presents after falling out of her bed. Did not strike her head or neck but states she did hit her chin. She also complains of left hip pain as well as a large gash over her right tib-fib. There is an extensive flap type wound to the right lower extremity which has an ABD pad lodged inside of it apparently which was placed by a family member at home. Tetanus will be updated. The wound will be cleaned, irrigated and closed. Tib-fib x-ray, left hip x-ray and mandible x-ray will be obtained. Patient evaluated by NEXUS criteria and found to be negative. Patient is also negative by bermudian C-spine criteria. No clinical evidence to suggest increased risk of cervical spine fracture. No indication for further imaging of the cervical spine this point. Patient has no head trauma to indicate need for CT imaging of the brain. No chest abdomen or pelvis trauma. 03/01/19 06:27 Patient did undergo procedural sedation for closure of the large flap wound. I did complete this in conjunction with the physician reference assistant to allow for more rapid closure. See documentation from physician reference assistant. The patient was subsequently placed into a posterior long leg splint for immobilization to prevent ambulation with this. I did consult with Dr. Barth via the phone who agrees with management plan, patient has been placed on prophylactic antibiotics and will follow up with Dr. Barth in the office on Thursday. At this time will discharge with return precautions and follow-up recommendations. Verbal discharge instructions given a the bedside and opportunity for questions given. Medication warnings reviewed. Patient is in agreement with this plan and has verbalized understanding of return precautions and the need for primary care follow-up in the next 24-72 hours. (RICKI LOWRY) - Vital Signs Vital signs: Temp Pulse Resp BP Pulse Ox 97.4 F 77 7 L 135/69 H 100 03/01/19 02:16 03/01/19 06:03 03/01/19 06:16 03/01/19 06:16 03/01/19 06:16 - Diagnostic Test Radiology results interpreted by me: 03/01/19 06:28 Left hip x-ray: No acute fracture or dislocation Right tib-fib x-ray: No acute fracture or dislocation Mandible x-ray: No acute fracture (RICKI LOWRY) Procedures - Laceration/Wound Repair right lower leg Wound length (cm): 30 Wound's Depth, Shape: Into muscle, Flap, Contused tissue Laceration pre-procedure: Sterile PPE donned, Betadine prep applied, Sterile drapes applied, Shur-Clens applied Anesthetic type: 1% Lidocaine w/epi Volume Anesthetic (mLs): 20 Wound explored: Clean Irrigated w/ Saline (mLs): 2,000 Wound Debrided: Extensive Wound Repaired With: [place] Number of Sutures: 28 Post-procedure wound care: Sterile dressing applied Post-procedure NV exam normal: Yes Complications: No <LOU GUADALUPE - Last Filed: 03/01/19 05:59> - Conscious Sedation Conscious sedation Time started: 05:33 Time completed: 05:53 Consent obtained: Yes Indication: Closure of large right lower extremity wound Prior complications: Procedural sedation Pt with a mild systemic disease.: P2. - ASA Classification. Airway Evaluation: Large tongue, Obese Mallampati Classification: Class 2 Used during procedure: Suction available, IV access obtained, Pulse ox on pt., shoe designer on pt. Medications administered: Ketamine Reversal agents: None I personally performed/intraservice time: Sedation, Procedure, 30 min or less Complications: No - Immobilization Right Leg Pre-Proc Neuro Vasc Exam: Normal Immobilizer type: Long leg posterior Performed by: Provider assisted Post-Proc Neuro Vasc Exam: Normal Alignment checked and good: Yes <RICKI LOWRY - Last Filed: 03/01/19 06:38> Discharge <LOU GUADALUPE - Last Filed: 03/01/19 05:59> <RICKI LOWRY - Last Filed: 03/01/19 06:38> - Discharge Clinical Impression: Laceration of right lower leg Qualifiers: Encounter type: initial encounter Qualified Code(s): S81.811A - Laceration without foreign body, right lower leg, initial encounter Injury of left hip Qualifiers: Encounter type: initial encounter Qualified Code(s): S79.912A - Unspecified injury of left hip, initial encounter Injury of jaw Qualifiers: Encounter type: initial encounter Qualified Code(s): S09.93XA - Unspecified injury of face, initial encounter Fall Qualifiers: Encounter type: initial encounter Qualified Code(s): W19.XXXA - Unspecified fall, initial encounter Condition: Stable Disposition: HOME, SELF-CARE Additional Instructions: You need to follow-up with Dr. Barth the orthopedic surgeon on Thursday for evaluation of the wound and removal of the splint. Take the antibiotics that have been prescribed until completed. Return immediately if you develop pus from the wound, worsening pain, or a fever of >100.4. Your x-rays of your hip, leg and jaw are all normal. Prescriptions: Clindamycin HCl 300 mg PO TID #30 capsule Referrals: RICKIE MCDANIEL MD [Primary Care Provider] - Follow up as needed DAVID BARTH DO [ACTIVE STAFF] - 03/04/19
--- NOTE | 2019-03-01 03:59 | RADIOLOGY REPORT (SQ) ---
EXAM DESCRIPTION: XR HIP 2 OR MORE VIEWS COMPLETED DATE/TME: 03/01/2019 02:17 CLINICAL HISTORY: 63 years, Female, fall COMPARISON: None. NUMBER OF VIEWS: 3 TECHNIQUE: AP pelvis and 2 views left hip LIMITATIONS: None. FINDINGS: Osteopenia. Extensive postsurgical changes of the lumbosacral spine and right hip. Negative for acute fracture or dislocation. IMPRESSION: No acute osseous abnormality copyright 2010 [employer]- All Rights Reserved
--- NOTE | 2019-03-01 04:11 | RADIOLOGY REPORT (SQ) ---
EXAM DESCRIPTION: XR TIBIA FIBULA 2 VIEWS COMPLETED DATE/TME: 03/01/2019 02:17 CLINICAL HISTORY: 63 years, Female, fall COMPARISON: None. NUMBER OF VIEWS: 5 TECHNIQUE: 5 views of the right tibia fibula LIMITATIONS: None. FINDINGS: Osteopenia. Rather extensive overlying artifact. Soft tissue injury laterally. Fracture deformity of the fibular diaphysis with evidence of bony healing. Negative for acute fracture or dislocation. IMPRESSION: Partially healed fracture deformity of the fibular diaphysis. Osteopenia. Soft tissue injury laterally. copyright 2010 [employer]- All Rights Reserved
[2019-03-01] MEDS: MORPHINE SULFATE 10 MG/ML INJ IV PRN ×2 (04:21→08:41)
[2019-03-01] MEDS ORDERED: LIDOCAINE 0.5%/EPINEPHRINE INJ 50 ML VIAL INJ ONE (04:30)
--- NOTE | 2019-03-01 04:30 | RADIOLOGY REPORT (SQ) ---
EXAM DESCRIPTION: XR MANDIBLE 4 OR MORE VIEWS COMPLETED DATE/TME: 03/01/2019 03:29 CLINICAL HISTORY: 63 years, Female, trauma, pain COMPARISON: None. NUMBER OF VIEWS: 5 TECHNIQUE: 5 views of the mandible LIMITATIONS: None. FINDINGS: There was difficulty with positioning the patient. Diffuse osteopenia. The patient is edentulous. What appears to be soft tissue swelling associated with the lips and face however no radiographic evidence for acute osseous abnormality. IMPRESSION: Soft tissue swelling of the lips and face is suggested. Limited study due to patient positioning. Osteopenia. No definitive acute fracture copyright 2010 [employer]- All Rights Reserved
[2019-03-01] MEDS ORDERED: KETAMINE HCL INJ 500 MG/10 ML VIAL IV ONE ×2 (04:57→05:57)
[2019-03-01] MEDS ORDERED: CLINDAMYCIN HCL 150 MG CAPSULE PO ONE ×2 (06:17→08:15)
[2019-03-01] MEDS ORDERED: ONDANSETRON HCL INJ/PF 4 MG/2 ML SDV IV ONE (06:24)
[2019-03-01] MEDS ORDERED: ONDANSETRON HCL INJ/PF 4 MG/2 ML SDV ONE (07:21)
[2019-03-01 09:39] VITALS: BP 156/81
== END 2019-03-01 09:38 | disposition home or self-care (01) ==
LOC: ER 01:59
PROC: 0HQKXZZ Repair Right Lower Leg Skin, External Approach (ICD-10-PCS; principal; 2019-03-01)
PROC: 2W3MX1Z Immobilization of Left Lower Extremity using Splint (ICD-10-PCS; 2019-03-01)
DX: S81.812A Laceration without foreign body, left lower leg, initial encounter (principal); S79.912A Unspecified injury of left hip, initial encounter; S09.93XA Unspecified injury of face, initial encounter; W06.XXXA Fall from bed, initial encounter; J44.9 Chronic obstructive pulmonary disease, unspecified; E11.9 Type 2 diabetes mellitus without complications; F31.9 Bipolar disorder, unspecified; I10 Essential (primary) hypertension
CPT/HCPCS: 99284; 99153; 99152; 73502; 70110; 73590; 90715; 12036; 29505; J3490 ×3; J2270; J2405

== ENCOUNTER → 2019-05-02 | Outpatient (CLI) | payer MEDICAID ==
[2019-05-02 11:13] LABS: ABSOLUTE BASOPHILS # (AUTO) 0.1 10^3/uL (0.0-0.2); ABSOLUTE EOSINOPHILS # (AUTO) 0.4 10^3/uL (0.0-0.6); ABSOLUTE LYMPHOCYTES (AUTO) 1.9 10^3/uL (0.5-4.7); ABSOLUTE MONOCYTES (AUTO) 0.5 10^3/uL (0.1-1.4); ABSOLUTE NEUT (AUTO) 8.2 10^3/uL (1.7-8.2); BASOPHILS % (AUTO) 0.6 % (0-2); EOSINOPHILS % (AUTO) 3.5 % (0-6); HEMATOCRIT 26.8 % (36.0-47.0); HEMOGLOBIN 8.4 g/dL (12.0-15.5); MEAN CORPUSCULAR HGB CONC 31.5 g/dL (32.0-36.0); MEAN CORPUSCULAR VOLUME 73 fl (80-97); MONOCYTES % (AUTO) 4.3 % (3-13); PLATELET COUNT 414 10^3/uL (150-450); RED BLOOD COUNT 3.68 10^6/uL (3.72-5.28); RED CELL DISTRIBUTION WIDTH 17.8 % (11.5-14.0); SEGMENTED NEUTROPHILS % (AUTO) 74.6 % (42-78); TOTAL CELLS COUNTED % (AUTO) 100 %; WHITE BLOOD COUNT 10.9 10^3/uL (4.0-10.5)
[2019-05-02 11:36] LABS: ANION GAP 14 (5-19); BLOOD UREA NITROGEN 14 mg/dL (7-20); CARBON DIOXIDE 25 mmol/L (22-30); CHLORIDE 103 mmol/L (98-107); CHOLESTEROL 153.06 mg/dL (0-200); GLUCOSE 115 mg/dL (75-110); POTASSIUM 4.2 mmol/L (3.6-5.0); SODIUM 141.7 mmol/L (137-145); TRIGLYCERIDES 131 mg/dL (<150)
[2019-05-02 11:47] LABS: DIRECT LDL 106 mg/dL (<100)
== END ==
LOC: OD 10:03
PROVIDERS: ATTEND Internal Medicine
DX: E11.9 Type 2 diabetes mellitus without complications (principal); E78.5 Hyperlipidemia, unspecified; D64.9 Anemia, unspecified; N19 Unspecified kidney failure
CPT/HCPCS: 36415; 80048; 80061; 83036; 85025